=== PATIENT | male | born 1960 | race Caucasian/White ===

== ENCOUNTER 2022-08-03 13:00 | Emergency (ER) | payer MEDICARE, MEDICAID ==
[2022-08-03] MEDS ORDERED: Lidocaine 2% Viscous Solution 15 ML UD PO ONE (14:25)
[2022-08-03] MEDS ORDERED: Benzocaine 20% Topical Spray UD MUCMEM ONE (14:25)
== END 2022-08-03 14:32 | disposition home or self-care (01) ==
LOC: MW.ED 13:00
DX: K04.7 Periapical abscess without sinus (principal); Z79.899 Other long term (current) drug therapy
CPT/HCPCS: 99282; A9270

== ENCOUNTER 2023-02-05 10:05 | Day surgery (SDC) | payer MEDICARE, MEDICAID ==
[~2023-02-05 10:05] MED LIST: Lactated Ringers 1,000 ML IV SCH; Propofol 200 MG/20 ML SDV ONE
[2023-02-05] MEDS ORDERED: Propofol 200 MG/20 ML SDV ONE (11:16)
[2023-02-05] MEDS ORDERED: Lactated Ringers 1,000 ML IV SCH (11:30)
== END 2023-02-05 12:25 | disposition home or self-care (01) ==
LOC: MW.SDS 10:05
PROVIDERS: ATTEND Surgery
DX: D12.3 Benign neoplasm of transverse colon (principal); K29.50 Unspecified chronic gastritis without bleeding; K29.00 Acute gastritis without bleeding; K57.30 Diverticulosis of large intestine without perforation or abscess without bleeding; K20.90 Esophagitis, unspecified without bleeding; M10.9 Gout, unspecified; I10 Essential (primary) hypertension; G25.81 Restless legs syndrome; E66.01 Morbid (severe) obesity due to excess calories; Z68.41 Body mass index [BMI] 40.0-44.9, adult; Z79.899 Other long term (current) drug therapy
CPT/HCPCS: 43239; 45380; J2704; J7120; 00813; 88305; 88342